=== PATIENT | male | born 1985 | race Caucasian/White ===

== ENCOUNTER 2016-10-07 07:25 | Emergency (ER) | payer SELFPAY ==
[2016-10-07 07:29] VITALS: BP 160/88
[2016-10-07] MEDS ORDERED: diPHENhydraMINE PO* 50 MG PO ONE (07:36)
[2016-10-07] MEDS ORDERED: Famotidine TAB* 20 MG PO ONE (07:36)
[2016-10-07] MEDS ORDERED: methylPREDNISolone 125 MG* 2 ML VIAL IM ONE (07:36)
--- NOTE | 2016-10-07 07:46 | UC ---
Allergic Reaction HPI - HPI Summary HPI Summary: WOKE UP THIS MORNING ABOUT 6:30AM WITH ITCHY RASH ON TRUNK AND AROUND WAIST. LOWER LIP SWOLLEN. FEELS LIKE IT IS DIFFICULT TO SWALLOW. NO AIRWAY COMPROMISE. JAW FEELS NUMB. DENIES ANY NEW MEDS. DRANK A TYPE OF BEER HE HASN'T HAD IN A LONG TIME LAST NIGHT. - History of Current Complaint Chief Complaint: UCAllergicReaction Stated Complaint: RASH MOUTH NUMB Time Seen by Provider: 10/07/16 07:29 Hx Obtained From: Patient Onset/Duration: Sudden Onset, Lasting Hours, Still Present Severity Initially: Moderate Severity Currently: Moderate Pain Intensity: 0 Pain Scale Used: 0-10 Numeric Character: Pruritus, Hives Aggrevating Factor(s): Nothing Alleviating Factor(s): Nothing Associated Signs And Symptoms: Positive: Rash - Related Hx Possible Reaction To: Unknown - Allergies/Home Medications Allergies/Adverse Reactions: Allergies Allergy/AdvReac Type Severity Reaction Status Date / Time Penicillins Allergy Severe Anaphylatic Verified 10/07/16 07:29 Shock Amoxicillin Allergy Anaphylatic Verified 10/07/16 07:29 Shock Bacitracin Allergy Rash Verified 10/07/16 07:29 WOOL Allergy ITCHING Uncoded 10/07/16 07:29 RASH PMH/Surg Hx/FS Hx/Imm Hx Previously Healthy: Yes - Surgical History Surgical History: Yes Surgery Procedure, Year, and Place: CYST REMOVAL IN FRONT OF RIGHT EAR. Right leg surgery - Family History Known Family History: Positive: Hypertension, Diabetes - Social History Alcohol Use: Daily Alcohol Amount: 2 beers daily Substance Use Type: Marijuana Substance Use Comment - Amount & Last Used: OCCASION Smoking Status (MU): Heavy Every Day Tobacco Smoker Type: Cigarettes Amount Used/How Often: 1/2 ppd Length of Time of Smoking/Using Tobacco: 8-9 years Have You Smoked in the Last Year: Yes - Immunization History Most Recent Influenza Vaccination: NEVER Most Recent Tetanus Shot: June 2011 Review of Systems Constitutional: Negative Skin: Rash, Other - LOWER LIP SWOLLEN Respiratory: Negative Cardiovascular: Negative Gastrointestinal: Negative All Other Systems Reviewed And Are Negative: Yes Physical Exam Triage Information Reviewed: Yes Appearance: Well-Appearing, No Pain Distress, Well-Nourished Vital Signs: Initial Vital Signs Temp 98.7 F 10/07/16 07:25 Pulse 118 10/07/16 07:25 Resp 20 10/07/16 07:25 BP 160/88 10/07/16 07:25 Pulse Ox 100 10/07/16 07:25 Vital Signs Reviewed: Yes Eyes: Positive: Conjunctiva Clear ENT: Positive: Hearing grossly normal, Pharynx normal, TMs normal, Other: - LOWER LIP EDEMATOUS Neck: Positive: Supple, Nontender, No Lymphadenopathy Respiratory Exam: Normal Cardiovascular: Positive: Tachycardia Abdomen Description: Positive: Soft Musculoskeletal: Positive: No Edema Neurological: Positive: Alert Psychological: Positive: Age Appropriate Behavior Skin: Positive: rashes - HIVES CHEST AND WAIST. Re-Evaluation - Re-Evaluation First Eval Re-Evaluation Time: 08:30 - FEELS IMPROVED AFTER SOLUMEDROL, BENADRYL AND PEPCID. LIP IS LESS SWOLLEN, HIVES ARE LESS ITCHY Change: Improved Allergic Reaction Course/Dx - Differential Dx/Diagnosis Provider Diagnoses: ALLERGIC REACTION Discharge - Discharge Plan Condition: Stable Disposition: HOME Prescriptions: predniSONE TAB* [Deltasone TAB*] 50 mg PO DAILY #5 tab Patient Education Materials: Angioedema (ED), General Allergic Reaction (ED) Forms: *Work Release Referrals: No Primary Care Phys,NOPCP [Primary Care Provider] - Additional Instructions: USE DAILY MOISTURIZING LOTION AVOID HEAT AND HOT WATER TAKE OTC ANTIHISTAMINE DAILY (CLARITIN (LORATADINE), ZYRTEC (CETIRIZINE) OR SILVINO (FEXOFENADINE) IN THE MORNING, BENADRYL AT NIGHT) DO NOT SCRATCH KEEP COOL, CLEAN AND DRY PREDNISONE FOR THE NEXT 5 DAYS CALL THE NUMBER BELOW FOR ASSISTANCE IN ESTABLISHING WITH A PCP An additional resource available to assist in finding the appropriate physician for your health care needs is the Physician Referral Center ([facility]). You may contact them by calling [phone]. IF SYMPTOMS ARE RECURRENT CONSIDER EVALUATION BY AN MANAGER HI [facility] Address: [address], [place] [address] [facility] [address] [place], [place] [address] [place], [place] [address]
== END 2016-10-07 08:50 | disposition home or self-care (01) ==
LOC: UCEAST 07:25
DX: T78.40XA Allergy, unspecified, initial encounter (principal); R21 Rash and other nonspecific skin eruption; X58.XXXA Exposure to other specified factors, initial encounter; Z88.3 Allergy status to other anti-infective agents; Z88.0 Allergy status to penicillin; F17.210 Nicotine dependence, cigarettes, uncomplicated
CPT/HCPCS: 96372; 99212; A9270-GY; G0463; J2930

== ENCOUNTER 2018-11-29 10:06 | Emergency (ER) | payer SELFPAY ==
[2018-11-29 10:18] VITALS: BP 138/90
--- NOTE | 2018-11-29 11:02 | UC ---
Throat Pain/Nasal [place] HPI - HPI Summary HPI Summary: 33-year-old male presents with one-week history of sore throat. Symptoms associated with general malaise, nasal congestion, runny nose, nausea, and occasional nonproductive cough. 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 Denies fever, chills, ear pain, dysphagia , chest pain, shortness of breath, abdominal pain, or vomiting. - History of Current Complaint Chief Complaint: UCGeneralIllness Stated Complaint: SORE THROAT COUGH Time Seen by Provider: 11/29/18 10:44 Hx Obtained From: Patient Pain Intensity: 7 - Allergies/Home Medications Allergies/Adverse Reactions: Allergies Allergy/AdvReac Type Severity Reaction Status Date / Time bacitracin Allergy Itching Verified 11/29/18 10:18 Penicillins Allergy anaph Verified 11/29/18 10:18 WOOL Allergy ITCHING Uncoded 10/07/16 07:29 RASH Home Medications: Home Medications NK [No Home Medications Reported] 11/29/18 [History Confirmed 11/29/18] PMH/Surg Hx/FS Hx/Imm Hx Previously Healthy: Yes - Denies significant PMH - Surgical History Surgical History: Yes Surgery Procedure, Year, and Place: CYST REMOVAL IN FRONT OF RIGHT EAR. Right leg surgery - Family History Known Family History: Positive: Hypertension, Diabetes - Social History Occupation: Employed Full-time Lives: With Family Alcohol Use: Daily Alcohol Amount: 2 beers daily Substance Use Type: Marijuana Substance Use Comment - Amount & Last Used: OCCASION Smoking Status (MU): Heavy Every Day Tobacco Smoker Type: Cigarettes Amount Used/How Often: 1/2 ppd Length of Time of Smoking/Using Tobacco: 8-9 years Have You Smoked in the Last Year: Yes - Immunization History Most Recent Influenza Vaccination: NEVER Most Recent Tetanus Shot: June 2011 Review of Systems All Other Systems Reviewed And Are Negative: Yes Constitutional: Positive: Fatigue. Negative: Fever, Chills Skin: Negative: Rash Eyes: Negative: Drainage, Eye Redness ENT: Positive: Sore Throat, Nasal Discharge, Sinus Congestion. Negative: Ear Ache, Sinus Pain/Tenderness Respiratory: Positive: Cough. Negative: Shortness Of Breath Cardiovascular: Negative: Palpitations, Chest Pain Gastrointestinal: Positive: Nausea. Negative: Abdominal Pain, Vomiting, Diarrhea Genitourinary: Positive: Negative Musculoskeletal: Positive: Negative Neurological: Positive: Negative Is Patient Immunocompromised?: No Physical Exam - Summary Physical Exam Summary: GENERAL APPEARANCE: Well developed, well nourished, alert and cooperative, and appears to be in no acute distress. EYES: Conjunctiva clear. No drainage. EARS: External auditory canals and tympanic membranes clear, hearing grossly intact. NOSE: No nasal discharge. THROAT: Mild pharyngeal erythema with post-nasal drip. No tonsilar inflammation , swelling, exudate, or lesions. Uvula midline. NECK: Neck supple, non-tender without lymphadenopathy. CARDIAC: Normal S1 and S2. No S3, S4 or murmurs. Rhythm is regular. There is no peripheral edema, cyanosis or pallor. Extremities are warm and well perfused. Capillary refill is less than 2 seconds. Peripheral pulses intact. LUNGS: Clear to auscultation without rales, rhonchi, wheezing or diminished breath sounds. ABDOMEN: Positive bowel sounds. Soft, nondistended, nontender. No guarding or rebound. No masses or hepatosplenomegally. MUSKULOSKELETAL: ROM intact to all extremities. No joint erythema or tenderness. Normal muscular development. Normal gait. SKIN: Skin normal color, texture and turgor with no lesions or eruptions. Triage Information Reviewed: Yes Vital Signs: Initial Vital Signs Temp 98 F 11/29/18 10:15 Pulse 89 11/29/18 10:15 Resp 18 11/29/18 10:15 BP 138/90 11/29/18 10:15 Pulse Ox 100 11/29/18 10:15 Vital Signs Reviewed: Yes Throat Pain/Nasal Course/Dx - Course Course Of Treatment: 33-year-old male presents with one-week history of sore throat. Symptoms associated with general malaise, nasal congestion, runny nose, nausea, and occasional nonproductive cough. 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 Denies fever, chills, ear pain, dysphagia , chest pain, shortness of breath, abdominal pain, or vomiting. Afebrile. Vital signs stable. Patient had some mild pharyngeal erythema with postnasal drip, no cervical lymphadenopathy, otherwise unremarkable exam. Rapid strep test was negative. Discussed results with the patient. Suspect that his symptoms are from a viral upper a story infection. Recommending symptomatic treatment at this time. He is to return here or follow up with his primary care provider in 5-7 days if symptoms are not improving. Anticipatory guidance and warning symptoms were reviewed with the patient. Verbalizes understanding and agrees with plan of care. - Differential Dx/Diagnosis Differential Diagnosis/HQI/PQRI: Pharyngitis, Sinusitis, Tonsillitis, URI Provider Diagnosis: Acute viral pharyngitis Discharge ED - Sign-Out/Discharge Documenting (check all that apply): Patient Departure All imaging exams completed and their final reports reviewed: No Studies - Discharge Plan Condition: Stable Disposition: HOME Patient Education Materials: Upper Respiratory Infection (ED) Forms: *Work Release Referrals: No Primary Care Phys,NOPCP [Primary Care Provider] - Additional Instructions: Your rapid strep test in the clinic today was negative. Your history and exam are consistent with a viral upper respiratory infection. Viral infections do not respond to antibiotics and are limited to the treatment of symptoms. Viral infections typically run their course in 7-10 days. Drink plenty of fluids to avoid dehydration especially if you are running any fever. Use fluticasone (Flonase) nasal spray 2 sprays each nostril once daily. Take an over the counter decongestant to help with the congestion and post- nasal drip. Take over the counter acetaminophen (Tylenol) or ibuprofen (Advil, Motrin) according to directions as needed for pain or fever. Use salt water gargles several times a day if you have a sore throat. You may also use Chloraseptic spray or Cepacol lonzenges according to directions which contain a numbing medication and can provide some temporary relief from your sore throat. Follow up with your primary care provider in 5-7 days if symptoms persist. Seek immediate medical attention in the emergency room if you have fever greater than 100.5 F despite taking acetaminophen or ibuprofen, have chest pain , difficulty breathing, are unable to swallow, or have any worsening of symptoms. - Billing Disposition and Condition Condition: STABLE Disposition: Home - Attestation Statements Provider Attestation: I was available for consult. This patient was seen by the LACHELLE. The patient was not presented to, seen by, or examined by me. -Lyla
== END 2018-11-29 11:19 | disposition home or self-care (01) ==
LOC: UCEAST 10:06
DX: J02.8 Acute pharyngitis due to other specified organisms (principal); F17.210 Nicotine dependence, cigarettes, uncomplicated; Z88.0 Allergy status to penicillin
CPT/HCPCS: 87651; 99211; G0463

== ENCOUNTER 2018-12-04 11:17 | Emergency (ER) | payer OTHER ==
[2018-12-04 11:33] VITALS: BP 148/98
[2018-12-04] MEDS ORDERED: Ibuprofen TAB* 600 MG PO ONE (11:45)
[2018-12-04] MEDS ORDERED: Tetan/Diph/Pertus SYR(Tdap)* 0.5 ML SYR(BOOSTRIX) use SYR contains LATEX IM ONE (11:55)
--- NOTE | 2018-12-04 11:57 | UC ---
Laceration HPI - HPI Summary HPI Summary: Patient is a 33-year-old male here with a left middle finger injury. 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 Patient has an avulsion of tissue at the distal tip of his finger. Patient's symptoms are taking. Patient last received tetanus in 2011. Medications reviewed - History Of Current Complaint Chief Complaint: UCLaceration Stated Complaint: FINGER LAC Time Seen by Provider: 12/04/18 11:44 Hx Obtained From: Patient Pain Intensity: 9 - Allergies/Home Medications Allergies/Adverse Reactions: Allergies Allergy/AdvReac Type Severity Reaction Status Date / Time bacitracin Allergy Itching Verified 12/04/18 11:33 Penicillins Allergy anaph Verified 12/04/18 11:33 WOOL Allergy ITCHING Uncoded 12/04/18 11:33 RASH PMH/Surg Hx/FS Hx/Imm Hx Previously Healthy: Yes - Surgical History Surgical History: Yes Surgery Procedure, Year, and Place: CYST REMOVAL IN FRONT OF RIGHT EAR. Right leg surgery - Family History Known Family History: Positive: Hypertension, Diabetes - Social History Alcohol Use: Daily Alcohol Amount: 2 beers daily Substance Use Type: Marijuana Substance Use Comment - Amount & Last Used: OCCASION Smoking Status (MU): Heavy Every Day Tobacco Smoker Type: Cigarettes Amount Used/How Often: 1/2 ppd Length of Time of Smoking/Using Tobacco: 8-9 years Have You Smoked in the Last Year: Yes - Immunization History Most Recent Influenza Vaccination: NEVER Most Recent Tetanus Shot: June 2011 Review of Systems All Other Systems Reviewed And Are Negative: Yes Constitutional: Negative: Fever, Chills ENT: Negative: Sore Throat Respiratory: Negative: Shortness Of Breath, Cough Cardiovascular: Negative: Palpitations, Chest Pain Gastrointestinal: Negative: Abdominal Pain, Vomiting, Diarrhea Physical Exam - Summary Physical Exam Summary: Vital Signs Reviewed: Yes A+Ox3, no distress Eyes: Conjunctiva Clear, PERRL. EOM intact and full ENT: Hearing grossly normal TM x 2 clear, moist, uvula midline, no exudate, no erythema Neck: Positive: Supple Respiratory: Positive: No respiratory distress, No accessory muscle use + CTA throughout no w/r Cardiovascular: RRR nl s1, s2 no m/r CBT <2 sec abd soft + BS nt/nd no guarding, no distension Musculoskeletal Exam: ARAGON x 4 without difficulty Strength Intact, ROM Intact Neurological: Positive: Alert, + sensation throughout Psychological: Positive: Normal Response To Family Skin: One centimeter by 1 cm piece of avulsed skin on the third finger on the left hand. Area is on the distal pad. No bleeding. Vital Signs: Initial Vital Signs Temp 98.6 F 12/04/18 11:30 Pulse 66 12/04/18 11:30 Resp 15 12/04/18 11:30 BP 148/98 12/04/18 11:30 Pulse Ox 99 12/04/18 11:30 Laceration Course/Dx - Course/Dx Course Of Treatment: Patient is here with a finger pad laceration. Patient was given tetanus as his wound was dirty appearance. Patient had his wound irrigated and cleaned. Patient had a digital block performed with debridement of the skin. Patient had a dressing placed with Surgicel. - Diagnosis Provider Diagnosis: Laceration of finger, middle Discharge ED - Sign-Out/Discharge Documenting (check all that apply): Patient Departure All imaging exams completed and their final reports reviewed: No Studies - Discharge Plan Condition: Stable Disposition: HOME Patient Education Materials: Finger Laceration (ED) Referrals: [facility] [place] PHYSICIAN REFERRAL [Outside] No Primary Care Phys,NOPCP [Primary Care Provider] - Additional Instructions: Please keep the dressing on for 24 hours and did not get it wet Please take ibuprofen 600 mg every 6 hours as needed for pain Please return if you have fever, worsening swelling in your finger, pus draining from your finger - Billing Disposition and Condition Condition: STABLE Disposition: Home
[2018-12-04] MEDS: Lidocaine 1% MPF ** 5 ML VIAL INJ ONE ×2 (12:03→12:11)
== END 2018-12-04 12:27 | disposition home or self-care (01) ==
LOC: UCEAST 11:17
DX: S61.213A Laceration without foreign body of left middle finger without damage to nail, initial encounter (principal); W31.89XA Contact with other specified machinery, initial encounter; Y93.89 Activity, other specified; Y92.9 Unspecified place or not applicable; Y99.0 Civilian activity done for income or pay; Z23 Encounter for immunization; Z88.3 Allergy status to other anti-infective agents; Z88.0 Allergy status to penicillin; Z91.048 Other nonmedicinal substance allergy status; F17.210 Nicotine dependence, cigarettes, uncomplicated
CPT/HCPCS: 11042; 90471; 90715; 99211; A9270-GY; G0463

== ENCOUNTER 2019-06-23 08:07 | Emergency (ER) | payer SELFPAY ==
--- NOTE | 2019-06-23 08:27 | UC ---
Bite Injury/Animal HPI - HPI Summary HPI Summary: CHIEF COMPLAINT: rash, tick bite HPI: This is a 34 y/o healthy male who pulled tick from his lower left stomach 2 days ago, and is not sure how long it was embedded. Redness around the area beginning last night. Minimal discomfort; feels hard. "Feels like a bad pimple." No other complaints. VITAL SIGNS REVIEWED. Within normal limits unless noted here.RG=756/102; Pulse= 108 NURSES NOTE REVIEWED. "TICK BITE, REMOVED FROM STOMACH 2 DAYS AGO, WITH SUBSEQUENT TENDERNESS AND HARDNESS AT SITE, STATES NO HX OF LYME.PT DENIES JOINT ACHES OR FEVERS" - History of Current Complaint Chief Complaint: UCSkin Stated Complaint: TICK BITE Time Seen by Provider: 06/23/19 08:20 Hx Obtained From: Patient Pain Intensity: 2 - Allergies/Home Medications Allergies/Adverse Reactions: Allergies Allergy/AdvReac Type Severity Reaction Status Date / Time bacitracin Allergy Itching Verified 06/23/19 08:18 Penicillins Allergy anaph Verified 06/23/19 08:18 WOOL Allergy ITCHING Uncoded 06/23/19 08:18 RASH Home Medications: Home Medications DOXYcycline CAP(*) [DOXYcycline 100MG CAP(*)] 100 mg PO BID #28 cap MDD 2 [Rx] Ibuprofen TAB* [Motrin TAB* 600 MG] 600 mg PO Q6H PRN 06/23/19 [History Confirmed 06/23/19] PMH/Surg Hx/FS Hx/Imm Hx - Additional Past Medical History Additional PMH: 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 CHRONIC & RECURRENT HEALTH PROBLEM LIST REVIEWED. VISIT HISTORY REVIEWED. MEDICATIONS & ALLERGIES REVIEWED. HYPERTENSION HISTORY REVIEWED. none; 161/102 "always been kind of high" FAMILY HISTORY: Positive for: hypertension, cardiovascular disease. 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 Right leg surgery - Family History Known Family History: Positive: Hypertension, Diabetes - Social History Alcohol Use: Daily Alcohol Amount: 2 beers daily Substance Use Type: Marijuana Substance Use Comment - Amount & Last Used: OCCASION Smoking Status (MU): Heavy Every Day Tobacco Smoker Type: Cigarettes Amount Used/How Often: 1/2 ppd Length of Time of Smoking/Using Tobacco: 8-9 years Have You Smoked in the Last Year: Yes - Immunization History Most Recent Influenza Vaccination: NEVER Most Recent Tetanus Shot: June 2011 Review of Systems All Other Systems Reviewed And Are Negative: Yes Constitutional: Positive: Negative Skin: Positive: Rash - tick bite site, left abdomen Respiratory: Positive: Negative Cardiovascular: Positive: Negative Gastrointestinal: Positive: Negative Is Patient Immunocompromised?: No Physical Exam - Summary Physical Exam Summary: Appearance: The patient is well-appearing, is well-nourished, and is in no pain or distress. Eyes: Conjunctiva are clear. Pupils are equal and reactive to light and accommodation. Extraocular muscle movement is intact. ENT: The hearing is grossly normal, and the TMs are normal. There is no muffled or hoarse voice. No stridor. Neck: The neck is supple and there is no lymphadenopathy. Respiratory: The chest is non-tender to palpation and without crepitus. The lungs are clear, there are normal breath sounds, and there is no respiratory distress. No wheezes, rales or rhonchi. Cardiovascular: Heart sounds reveal a regular rate and rhythm. There are no clicks, rubs or murmurs. There are no carotid bruits. Circulation is grossly intact. Abdomen: The abdomen is soft and nontender. Bowel sounds are present and within normal limits. There is no gross organomegaly. No point tenderness at McBurney s point. No CVA tenderness. Musculoskeletal: Strength is intact. The patient moves all extremities. Neurological: The patient is alert. Motor and sensory are examination grossly intact. Speech is normal. Psychological: The patient displays age appropriate behavior, and is conversant. GCS=15. Skin: 2.5 cm circular erythema with central elevated papule on the left lower abdomen. No ascending cellulitis or lymphangitis. Triage Information Reviewed: Yes Vital Signs: Initial Vital Signs Resp 16 06/23/19 08:11 Vital Signs Reviewed: Yes Bite Injury Course/Dx - Course Course Of Treatment: The patient presents with a tick bite. Tick removed 2 days ago. Unsure how long it was embedded. No foreign body remaining. Localized erythema c/w allergic reaction, early Lyme or cellulitis. The tick apparently had been present for more than 36 hours. The patient has no history of Lyme disease. I explained to the patient the need to wait approximately 2-3 weeks before Lyme testing would be accurate, and the need to watch for any target rash or signs consistent with skin infection. The patient will clean the bite site morning and night with warm water and soap and place antibiotic ointment on it. I have given the patient 200 mg of doxycycline for Lyme prophylaxis. Patient knows to follow up immediately for new symptoms or fever. I have given the patient information about Lyme disease. I am uncertain if this is an allergic reaction , early Lyme or localized cellulitis. I have started the patient on doxycyline , 100mg, twice a day, for 14 days. I have given him information for physician referral for this condition and his hypertension. Patient has had hypertension for more than 10 years. Tachycardia noted. Unclear etiology. Could be anxiety. Daily alcohol consumption noted. Patient needs primary care but can't afford it and is unemployed presently. - Differential Dx/Diagnosis Differential Diagnosis/HQI/PQRI: Cellulitis Provider Diagnosis: Tick bite of abdomen, Hypertension Discharge ED - Sign-Out/Discharge Documenting (check all that apply): Patient Departure All imaging exams completed and their final reports reviewed: No Studies - Discharge Plan Condition: Stable Disposition: HOME Prescriptions: DOXYcycline CAP(*) [DOXYcycline 100MG CAP(*)] 100 mg PO BID #28 cap MDD 2 Patient Education Materials: Lyme Disease (ED), Tick Bite (ED) Referrals: No Primary Care Phys,NOPCP [Primary Care Provider] - Additional Instructions: WE DISCUSSED: PLEASE SEEK CARE AT THE EMERGENCY DEPARTMENT IF SYMPTOMS WORSEN OR IF NEW SYMPTOMS DEVELOP. FOLLOW UP WITH YOUR PRIMARY CARE PHYSICIAN IF CONDITION CONTINUES BEYOND 3 DAYS WITHOUT IMPROVEMENT. YOUR DIAGNOSIS IS: tick bite, possible early Lyme rash, or cellulitis, or an allergic response. I will start you on an antibiotic that will cover cellulitis and Lyme. Recheck for any worsening of rash. YOUR PRESCRIPTION RECOMMENDATION IS: doxycycline, 100mg; one pill, twice a day for 14 days. Hypertension Discharge Instructions: Your blood pressure reading today was 161/102, indicating hypertension. Follow- up with your primary care provider within 4 weeks for blood pressure check and appropriate recommendations and treatment, as needed. We have given you a referral card. Call the Physician Referral Center at [facility] to assist you in finding a health care provider. The number is: [phone]. If you don't have a health care provider, and need medical attention, call [facility] for follow-up. The telephone number is: [phone]. For pain: Ibuprofen (Motrin and other brand names) 400-600mg PLUS acetaminophen (Tylenol and other brand names) 500mg - 1000mg every 8 hours. Maximum is 3 doses a day. If this dosage is required for more than 5 days, you should re-check with your doctor. The combination of these two over-the- counter medications can be more effective than each one taken alone. Please check with the pharmacist if you have questions about your allergies to these medications or if you have any chronic conditions that might be affected by either Tylenol or Ibuprofen. ALSO: Gently clean the wound with warm soap and water or dilute peroxide, twice a day. Then apply antibiotic ointment or cream, and a Band-Aid or other protective dressing. Watch for any signs of infection: redness, pain, swelling , or fever. Watch for any red lines coming from the wound. - Billing Disposition and Condition Condition: STABLE Disposition: Home
[2019-06-23 08:34] VITALS: BP 161/102
== END 2019-06-23 08:55 | disposition home or self-care (01) ==
LOC: UCEAST 08:07
DX: S30.861A Insect bite (nonvenomous) of abdominal wall, initial encounter (principal); R21 Rash and other nonspecific skin eruption; W57.XXXA Bitten or stung by nonvenomous insect and other nonvenomous arthropods, initial encounter; Y92.9 Unspecified place or not applicable; I10 Essential (primary) hypertension; Z88.3 Allergy status to other anti-infective agents; Z88.0 Allergy status to penicillin; Z91.09 Other allergy status, other than to drugs and biological substances; F17.210 Nicotine dependence, cigarettes, uncomplicated
CPT/HCPCS: 99212; G0463